=== PATIENT | female | born 1955 | race Caucasian/White ===

== ENCOUNTER 2017-02-13 16:36 | Inpatient (IN) | payer OTHER ==
[~2017-02-13 16:36] MED LIST: AMIN1TAB PO; CALCCHW6 CHEW; ESTR2TAB PO; FOLI1TAB PO; VALT1TAB26 PO
[2017-02-13 20:00] VITALS: BP 183/92; PULSE 98; RESP 18; TEMP 97.4; O2SAT 98
[2017-02-13] MEDS ORDERED: ONDANSETRON INJ 8 MG in DEXTROSE 5% IN WATER INJ 50 ML IV PRN ×2 (20:15)
[2017-02-13] MEDS ORDERED: TEMAZEPAM 15 MG CAP PO PRN (20:15)
--- NOTE | 2017-02-13 20:57 | MH ---
cc: JIE CALIX M.D. DATE OF ADMISSION: 02/13/2017 ADMITTING DIAGNOSIS: 1. Refractory ITP 2. Severe thrombocytopenia. 3. Increased bruising. 4. Herpes zoster eruption. HISTORY OF PRESENT ILLNESS Mrs. Mac is a 60-year-old woman with chronic refractory immune thrombocytopenic purpura. She is refractory to multiple therapies. She recently received rituximab. She had partial response with seemingly increase in platelet count around 30,000 range. She still required Nplate, which she takes weekly. There has been no interruption in her treatment with Nplate. Her dose has been optimized to 10 mcg/kg. Despite this however her platelet count was trending down. Two weeks ago it was 22,000 and at the beginning of the week it was 24,000. Over the last several days she has had increasing bruising. Her lip is bleeding. She reports seeing bright red blood in her stools. She denies any melena. She has no hemoptysis. She developed herpetic eruption on the day of the consultation. She was seen in clinic for her Nplate dose. In light of the above findings, her low platelet count from side reference lab in addition to the increase in bleeding and increased bruising, she is admitted to the hospital for IVIG rescue for ITP exacerbation. On review of systems she complains of being achy. She feels that this has probably been the prodrome from her herpes zoster eruption. She received the vaccine several months ago. Despite this however she has a zoster eruption that is beginning in her left upper lip. She denies feeling dizzy or weak. She denies any headaches. She has noted bleeding described above. The rest of her review of systems is negative. PAST MEDICAL HISTORY: 1. History of asthma. 2. Irritable bowel. 3. Chronic refractory ITP. 4. Herpes zoster. 5. Migraine headaches. PAST SURGICAL HISTORY: 1. Hysterectomy. 2. Tonsillectomy. 3. Splenectomy. 4. Colonoscopy. ALLERGIES: NO KNOWN DRUG ALLERGIES. FAMILY HISTORY: Significant for diabetes. SOCIAL HISTORY: She denies any tobacco, alcohol or illicit drug use. CURRENT MEDICATIONS: 1. Albuterol. 2. Nplate. 3. Estradiol. PHYSICAL EXAMINATION: VITAL SIGNS: Temperature 97.4, heart rate 98, respiratory rate 18, blood pressure 183/92, saturation 98%. GENERAL: Ms. Mac is a well-developed, well-nourished mildly heavy-set woman in no acute distress. HEAD, EYES, EARS, NOSE, THROAT: Her pupils are reactive to light and accommodation. Oropharynx with mild wet purpura. There is a crusted lesion which is intermittently bleeding over the left upper lip. There is a wet purpura in the lower lip. There are small blisters along the left nasolabial fold. LUNGS: Clear to auscultation. No wheezing. CARDIOVASCULAR: Exam reveals mild tachycardia. ABDOMEN: Abdomen is a benign. EXTREMITIES: Lower extremities with evidence of bruising. No overt petechia. There is a bruise in the inner right thigh soft. LABORATORY DATA: Reference labs from February 11: platelet count of 24,000. ASSESSMENT AND PLAN: Ms. Mac is a well-known 61-year-old woman with chronic refractory ITP. She is admitted for ITP exacerbation. CBC, CMP will be obtained. I plan to use IVIG as rescue. IV fluid hydration is initiated. She is noted to have an increase in blood pressure. She does not have a history of hypertension. She was given a dose of lorazepam and her blood pressure will be repeated. Hydration is initiated in case this is volume depletion. We will monitor for any overt bleeding. IVIG at a dose of 400 milligrams /kilogram on a 5-day dosing schedule is scheduled. She typically responds with one dose. We will assess her response in the morning. Repeat CBC in the morning. More importantly, treatment for her shingles / zoster eruption will be initiated. Valacyclovir 1000 mg p.o. q.8 h is initiated. A proton pump inhibitor is offered. Her questions were answered to her satisfaction. Jie Calix MD RAD/JCC /8:38 PM /8:52 PM
[2017-02-13] MEDS ORDERED: diphenhydrAMINE HCL 25 MG CAP PO SCH (21:00)
[2017-02-13] MEDS ORDERED: SODIUM CHLORID 0.9% 500 ML INJ 500 ML IV SCH (21:00)
[2017-02-13] MEDS: ACETAMINOPHEN 325 MG TAB PO SCH (21:54)
[2017-02-13] MEDS: SODIUM CHLOR 0.9% 1000 ML INJ 1,000 ML IV SCH (21:56)
[2017-02-13] MEDS: LORazepam 0.5 MG TAB PO PRN (21:56)
[2017-02-13] MEDS ORDERED: IMMUNE GLOBULIN INJ 40 GM in SYRINGE/BAG 1 EA IV SCH (22:00)
[2017-02-13 22:50] LABS: AUTOMATED NEUTROPHIL # 5.3 TH/MM3 (1.8-7.7); BASOPHIL # 0.1 TH/MM3 (0-0.2); BASOPHIL % 1.3 % (0.0-2.0); EOSINOPHIL # 0.3 TH/MM3 (0-0.4); EOSINOPHIL % 3.6 % (0.0-4.0); HEMATOCRIT 38.1 % (35.0-46.0); LYMPH % 17.7 % (9.0-44.0); LYMPHOCYTE # 1.4 TH/MM3 (1.0-4.8); MEAN CELL VOLUME 84.2 FL (80.0-100.0); MEAN CORPUSCULAR HEMOGLOBIN 27.6 PG (27.0-34.0); MEAN CORPUSCULAR HGB CONC 32.8 % (32.0-36.0); MONO % 10.9 % (0.0-8.0); NEUT % 66.5 % (16.0-70.0); RED BLOOD COUNT 4.52 MIL/MM3 (4.00-5.30); RED CELL DISTRIBUTION WIDTH 15.6 % (11.6-17.2); WHITE BLOOD COUNT 7.9 TH/MM3 (4.0-11.0)
[2017-02-13 23:03] LABS: HEMO FLAGS AUTO DIFF; PLATELET COUNT 11 TH/MM3 (150-450)
[2017-02-13 23:05] LABS: ANION GAP 7 MEQ/L (5-15); BICARBONATE 27.2 MEQ/L (21.0-32.0); BLOOD UREA NITROGEN 14 MG/DL (7-18); CHLORIDE 109 MEQ/L (98-107); POTASSIUM 3.6 MEQ/L (3.5-5.1); SODIUM (NA) 143 MEQ/L (136-145)
[2017-02-13 23:34] LABS: CORRECTED NUCLEATED RBC 3 /100 WBC (0-0); EOSINOPHILS 1 % (0-4); NEUTROPHIL # MANUAL DIFF 5.8 TH/MM3 (1.8-7.7); PLATELET ESTIMATE SMEAR LOW (NORMAL); PLATELET MORPHOLOGY ENLARGED (NORMAL); POLYS (SEG NEUTROPHILS) 73 % (16-70); SCAN/DIFF FINAL DIFF MANUAL; WBC DIFF SAMPLE 100
[2017-02-13 23:38] LABS: ALKALINE PHOSPHATASE 93 U/L (45-117); ALT (GPT) 25 U/L (10-53); AST (GOT) 18 U/L (15-37); GLOMERULAR FILTRATION RATE 81 ML/MIN (>89); IMMUNOGLOBULIN A 99 MG/DL (85-468); IMMUNOGLOBULIN G 775 MG/DL (650-1610); IMMUNOGLOBULIN M 19 MG/DL (45-276); TOTAL BILIRUBIN ADULT 0.2 MG/DL (0.2-1.0)
[2017-02-13 23:41] LABS: ACANTHOCYTES OCC (NORMAL); HOWELL-JOLLY BODIES PRESENT (NONE SEEN); OVALOCYTES 1+ (NORMAL)
[2017-02-13] MEDS: valACYclovir HCL 500 MG TAB PO SCH (23:47)
[2017-02-13] MEDS: PANTOPRAZOLE SOD 20 MG DELAYED RELEASE TAB PO SCH (23:47)
[2017-02-13 23:50] VITALS: BP 123/77; PULSE 77; RESP 16; TEMP 96.6; O2SAT 98
[2017-02-14] VITALS (13 sets, daily range): BP systolic 94–151; BP diastolic 53–86; PULSE 65–81; RESP 14–18; TEMP 95.8–98.3; O2SAT 94–99
[2017-02-14] MEDS: valACYclovir HCL 500 MG TAB PO SCH ×2 (06:01→13:57)
[2017-02-14] MEDS: ACETAMINOPHEN 325 MG TAB PO SCH (06:03)
[2017-02-14] MEDS: SODIUM CHLOR 0.9% 1000 ML INJ 1,000 ML IV SCH ×2 (06:05→13:57)
[2017-02-14 07:34] LABS: HEMATOCRIT 34.9 % (35.0-46.0); MEAN CELL VOLUME 83.9 FL (80.0-100.0); MEAN CORPUSCULAR HEMOGLOBIN 27.8 PG (27.0-34.0); MEAN CORPUSCULAR HGB CONC 33.1 % (32.0-36.0); PLATELET COUNT 20 TH/MM3 (150-450); RED BLOOD COUNT 4.16 MIL/MM3 (4.00-5.30); RED CELL DISTRIBUTION WIDTH 15.7 % (11.6-17.2); WHITE BLOOD COUNT 6.1 TH/MM3 (4.0-11.0)
[2017-02-14 07:39] LABS: REVIEW FLAG FINAL
[2017-02-14] MEDS ORDERED: SODIUM CHLOR 0.9% 250 ML INJ 250 ML IV ONE (09:30)
[2017-02-14] MEDS ORDERED: ACETAMINOPHEN 325 MG TAB PO PRN (09:30)
[2017-02-14] MEDS ORDERED: diphenhydrAMINE HCL 25 MG CAP PO PRN (09:30)
[2017-02-14] MEDS ORDERED: VALT500T PO (09:46)
--- NOTE | 2017-02-14 09:52 | PD.ONC.PN ---
Subjective Subjective Remarks Afebrile overnight Pt c/o occasional headache; relieved by tylenol Objective Data Date Time Temp Pulse Resp B/P Pulse Ox O2 Delivery O2 Flow Rate FiO2 02/14/17 08:00 97.3 71 14 119/77 97 02/14/17 04:30 95.8 65 15 94/55 96 02/14/17 03:30 96.9 75 16 97/53 96 02/14/17 02:24 97.2 70 16 99/68 99 02/14/17 01:30 97.1 75 16 102/76 98 02/14/17 00:35 73 16 97/62 02/14/17 00:20 97.1 76 16 104/66 94 02/14/17 00:05 97.2 74 16 114/72 98 02/13/17 23:50 96.6 77 16 123/77 98 02/13/17 20:00 97.4 98 18 183/92 98 02/14/17 02/14/17 02/14/17 07:00 15:00 23:00 Intake Total 500 ml Balance 500 ml Result Diagram: 02/14/17 0709 02/13/17 2218 Laboratory Results Laboratory Tests Test 02/13/17 02/14/17 22:18 07:09 White Blood Count 7.9 TH/MM3 6.1 TH/MM3 Red Blood Count 4.52 MIL/MM3 4.16 MIL/MM3 Hemoglobin 12.5 GM/DL 11.5 GM/DL Hematocrit 38.1 % 34.9 % Mean Corpuscular Volume 84.2 FL 83.9 FL Mean Corpuscular Hemoglobin 27.6 PG 27.8 PG Mean Corpuscular Hemoglobin 32.8 % 33.1 % Concent Red Cell Distribution Width 15.6 % 15.7 % Platelet Count 11 TH/MM3 20 TH/MM3 Mean Platelet Volume 10.5 FL 11.1 FL Neutrophils (%) (Auto) 66.5 % Lymphocytes (%) (Auto) 17.7 % Monocytes (%) (Auto) 10.9 % Eosinophils (%) (Auto) 3.6 % Basophils (%) (Auto) 1.3 % Neutrophils # (Auto) 5.3 TH/MM3 Lymphocytes # (Auto) 1.4 TH/MM3 Monocytes # (Auto) 0.9 TH/MM3 Eosinophils # (Auto) 0.3 TH/MM3 Basophils # (Auto) 0.1 TH/MM3 CBC Comment AUTO DIFF Differential Total Cells 100 Counted Neutrophils % (Manual) 73 % Lymphocytes % 20 % Monocytes % 6 % Eosinophils % 1 % Neutrophils # (Manual) 5.8 TH/MM3 Nucleated Red Blood Cells 3 /100 WBC Differential Comment FINAL DIFF MANUAL Platelet Estimate LOW Platelet Morphology Comment ENLARGED Ovalocytes 1+ Mckeon-[place] Bodies PRESENT Acanthocytes OCC Sodium Level 143 MEQ/L Potassium Level 3.6 MEQ/L Chloride Level 109 MEQ/L Carbon Dioxide Level 27.2 MEQ/L Anion Gap 7 MEQ/L Blood Urea Nitrogen 14 MG/DL Creatinine 0.73 MG/DL Estimat Glomerular Filtration 81 ML/MIN Rate Random Glucose 90 MG/DL Calcium Level 8.4 MG/DL Total Bilirubin 0.2 MG/DL Aspartate Amino Transf 18 U/L (AST/SGOT) Alanine Aminotransferase 25 U/L (ALT/SGPT) Alkaline Phosphatase 93 U/L Total Protein 6.3 GM/DL Albumin 3.6 GM/DL Immunoglobulin G Total 775 MG/DL Immunoglobulin A 99 MG/DL Immunoglobulin M 19 MG/DL Administered Medications Medications (Trade) Dose Ordered Sig/Marco A Route PRN Reason Start Time Stop Time Status Last Admin Dose Admin Lorazepam 0.5 mg 0.5 mg DAILY PRN PO anxiety or before procedure 02/13/17 20:15 02/13/17 21:56 Sodium Chloride (NS 1000 ml Inj) 1,000 ml @ 125 mls/hr Q8H IV 02/13/17 20:15 02/14/17 06:05 Valacyclovir HCl (Valtrex) 1,000 mg Q8HR PO 02/13/17 22:00 02/14/17 06:01 Pantoprazole Sodium 20 mg 20 mg DAILY PO 02/13/17 22:00 02/13/17 23:47 Sodium Chloride (NS 500 ml Inj) 500 ml @ 500 mls/hr Q24H IV 02/13/17 21:00 02/17/17 21:59 02/13/17 21:00 Acetaminophen (Tylenol) 650 mg Q24H PO 02/13/17 21:00 02/18/17 20:59 02/14/17 06:03 Diphenhydramine HCl 25 mg 25 mg Q24H PO 02/13/17 21:00 02/18/17 20:59 7/14/17 21:54 Immune Globulin/ Syringe / Bag (Privigen Inj/ Syringe/Bag) 400 ml @ 0 mls/hr Q24H IV 02/13/17 22:00 02/17/17 22:01 02/13/17 23:48 Objective Remarks GENERAL: Middle-aged female sitting up in bed in no distress SKIN: Warm and dry. HEAD: Normocephalic. Scab to left lower lip EYES: No injection or drainage. NECK: Supple, trachea midline. CARDIOVASCULAR: + S1/S2. No murmur. RESPIRATORY: Breath sounds equal bilaterally. No accessory muscle use. GASTROINTESTINAL: Abdomen soft, non-tender, nondistended. EXTREMITIES: Few ecchymoses to bilateral upper and lower extremities MUSCULOSKELETAL: Adequate muscle tone. NEUROLOGICAL: No obvious focal deficit. Awake, alert, and oriented x3. Assessment/Plan Problem List: (1) ITP (idiopathic thrombocytopenic purpura) Status: Chronic Assessment 61-year-old female with refractory ITP to multiple medications admitted for IVIG infusion Plan 1. CT Brain to r/o hemorrhage with severe thrombocytopenia and headache. 2. OK for discharge after platelet transfusion and CT brain. 2. Weekly CBC 3. Follow-up with me in clinic on February 24. Attending Statement The exam, history, and the medical decision-making described in the above note were completed with the assistance of the mid-level provider. I reviewed and agree with the findings presented. I attest that I had a [id number] encounter with the patient on the same day, and personally performed and documented my assessment and findings in the medical record. Ct brain removed --acute intracranial process plt transfusion ok to d/c [facility] Feb 14, 2017 09:52 Igor Bailon MD Feb 15, 2017 00:55
--- NOTE | 2017-02-14 09:57 | HHI.DCPOC ---
Discharge Care Plan Diagnosis: (1) ITP (idiopathic thrombocytopenic purpura) Goals to Promote Your Health * To prevent worsening of your condition and complications * To maintain your health at the optimal level Directions to Meet Your Goals Take your medications as prescribed Follow your dietary instruction Follow activity as directed Keep your appointments as scheduled Take your immunizations and boosters as scheduled If your symptoms worsen call your PCP, if no PCP go to Urgent Care Center or Emergency Room Smoking is Dangerous to Your Health. Avoid second hand smoke Call the 24-hour hour crisis hotline for domestic abuse at [facility] Feb 14, 2017 09:56 Igor Bailon MD Feb 15, 2017 00:55
[2017-02-14] MEDS: PANTOPRAZOLE SOD 20 MG DELAYED RELEASE TAB PO SCH (09:58)
[2017-02-14] MEDS: LORazepam 0.5 MG TAB PO PRN (13:56)
--- NOTE | 2017-02-14 16:12 | RADRPT ---
EXAM DATE/TIME: 02/14/2017 15:54 [facility] COMPARISON: No previous studies available for comparison. INDICATIONS : Headache for 3 days RADIATION DOSE: 47.74 CTDIvol (mGy) MEDICAL HISTORY : None SURGICAL HISTORY : None. ENCOUNTER: Initial ACUITY: 3 days PAIN SCALE: 5/10 LOCATION: cranial TECHNIQUE: Multiple contiguous axial images were obtained of the head. Using automated exposure control and adj ustment of the mA and/or kV according to patient size, radiation dose was kept as low as reasonably a chievable to obtain optimal diagnostic quality images. DICOM format image data is available electro nically for review and comparison. FINDINGS: There is no evidence for intracranial hemorrhage, mass effect, mass lesions, edema, or extra-axial fl uid collections. The visualized bony structures appear intact. The ventricles are normal size for t he patient's age. There are no signs of acute infarction for technique. CONCLUSION: Unremarkable study. Beto Mccracken MD on February 14, 2017 at 16:08 Board Certified Radiologist. This report was verified electronically.
== END 2017-02-14 18:30 | disposition home or self-care (01) | DRG 813 ==
LOC: HOCB 19:50
PROVIDERS: ADMIT Internal Medicine Hematology & Oncology; ATTEND Internal Medicine Hematology & Oncology
PROC: 30233R1 Transfusion of Nonautologous Platelets into Peripheral Vein, Percutaneous Approach (ICD-10-PCS; principal; 2017-02-14)
DX: D69.3 Immune thrombocytopenic purpura (principal); B02.9 Zoster without complications; J45.909 Unspecified asthma, uncomplicated; K58.9 Irritable bowel syndrome, unspecified; G43.909 Migraine, unspecified, not intractable, without status migrainosus
CPT/HCPCS: 36430; 70450; 80053; 82784; 85007; 85027; 86965; J1459; J7030; J7040; P9035

== ENCOUNTER 2017-09-25 13:58 | Emergency (ER) | payer OTHER ==
[~2017-09-25] VITALS: Ht 165.1 cm; Wt 85.0 kg
[~2017-09-25 13:58] MED LIST changes: -AMIN1TAB PO; +VALT500T PO
[2017-09-25 14:22] VITALS: BP 150/91; PULSE 78; RESP 18; TEMP 98.6; O2SAT 99
[2017-09-25] MEDS ORDERED: METH2.5T PO (15:11)
[2017-09-25] MEDS ORDERED: ESTR2TAB PO (15:11)
[2017-09-25] MEDS ORDERED: FOLI400T PO (15:11)
[2017-09-25] MEDS ORDERED: FISHCAP4 PO (15:11)
[2017-09-25 15:16] LABS: BICARBONATE 27.9 MEQ/L (21.0-32.0); CALCIUM 9.1 MG/DL (8.5-10.1)
[2017-09-25 15:17] LABS: PROTHROMBIN TIME - PATIENT 10.5 SEC (9.8-11.6)
[2017-09-25 15:20] LABS: CREATININE 0.71 MG/DL (0.50-1.00)
[2017-09-25 15:21] LABS: AUTOMATED NEUTROPHIL # 8.7 TH/MM3 (1.8-7.7); BASOPHIL # 0.1 TH/MM3 (0-0.2); BASOPHIL % 0.7 % (0.0-2.0); EOSINOPHIL # 0.3 TH/MM3 (0-0.4); EOSINOPHIL % 2.5 % (0.0-4.0); HEMATOCRIT 38.2 % (35.0-46.0); HEMOGLOBIN 12.5 GM/DL (11.6-15.3); LYMPH % 20.7 % (9.0-44.0); LYMPHOCYTE # 2.6 TH/MM3 (1.0-4.8); MEAN CELL VOLUME 86.3 FL (80.0-100.0); MEAN CORPUSCULAR HEMOGLOBIN 28.2 PG (27.0-34.0); MEAN CORPUSCULAR HGB CONC 32.7 % (32.0-36.0); MEAN PLATELET VOLUME 6.7 FL (7.0-11.0); MONOCYTE # 0.9 TH/MM3 (0-0.9); NEUT % 69.1 % (16.0-70.0); RED BLOOD COUNT 4.43 MIL/MM3 (4.00-5.30); RED CELL DISTRIBUTION WIDTH 16.6 % (11.6-17.2); WHITE BLOOD COUNT 12.6 TH/MM3 (4.0-11.0)
[2017-09-25] MEDS ORDERED: IOHEXOL 350 MG/ML 10 ML VIAL (for RAD DIAG) IVCONTRAST ONE (16:01)
--- NOTE | 2017-09-25 16:04 | RADRPT ---
EXAM DATE/TIME: 09/25/2017 15:22 [facility] COMPARISON: No previous studies available for comparison. INDICATIONS : Right leg swelling. MEDICAL HISTORY : Asthma. Arthritis. Anxiety. Thrombocytopenia. Shingles. SURGICAL HISTORY : Hysterectomy. Splenectomy. ENCOUNTER: Initial ACUITY: 1 week PAIN SCORE: 3/10 LOCATION: Right leg. TECHNIQUE: Venous ultrasound of the leg was performed from the inguinal ligament to the proximal calf. Real-alpa e, color Doppler and spectral tracing, compression and augmentation techniques were used. FINDINGS: There is normal compressibility of the deep venous system from the inguinal region to the proximal ca lf. No echogenic clot is seen in the lumen of the common femoral, femoral, popliteal, and posterior tibial veins. There is a normal response of the venous system to proximal and distal augmentation an d respiration. CONCLUSION: 1. No DVT identified. Davian Evans MD on September 25, 2017 at 16:02 Board Certified Radiologist. This report was verified electronically.
--- NOTE | 2017-09-25 17:01 | PD ---
HPI . Pain and swelling of the right leg Chief Complaint: Abnormal Results Time Seen by Provider: 14:42 Travel History International Travel<30 days: No Contact w/Intl Traveler<30days: No Traveled to known affect area: No History of Present Illness HPI Patient presents with the chief complaint of pain and swelling of her right lower extremity. She states she has noticed some swelling in her foot for a while now but that she has just developed pain and swelling behind the knee and into the calf. Pain is exacerbated by movement and also by standing. There has been no injury. She denies chest pain or shortness of breath. Pertinent medical history is thrombocytopenia. She states that she has had thrombocytopenia for a while and has been treated for presumed ITP. 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 She is now on methotrexate. She has been on the methotrexate since about July. She was seen today regarding the leg pain. Her oncologist sent her here for ultrasound to rule out DVT and CTA with runoff to rule out arterial abnormality. Patient rates her pain at 9/10 but states that she just needs the Tylenol. PFSH Past Medical History Arthritis: Yes (HANDS) Asthma: Yes Autoimmune Disease: No Blood Disorders: Yes (ITP) Anxiety: Yes Depression: No Heart Rhythm Problems: No Cancer: No Cardiovascular Problems: No High Cholesterol: No Chemotherapy: Yes Chest Pain: No Congestive Heart Failure: No COPD: No Cerebrovascular Accident: No Diabetes: No Endocrine: No GERD: No Glaucoma: No Genitourinary: No Hepatitis: No Hiatal Hernia: No Hypertension: No Immune Disorder: No Kidney Stones: No Musculoskeletal: No Neurologic: No Psychiatric: No Reproductive: No Respiratory: Yes (HX. ASTHMA) Migraines: No Radiation Therapy: No Renal Failure: No Seizures: No Sickle Cell Disease: No Sleep Apnea: No Thyroid Disease: No Ulcer: No Past Surgical History Abdominal Surgery: Yes (SPLEENECTOMY) AICD: No Arteriovenous Shunt: No Cardiac Surgery: No Ear Surgery: No Endocrine Surgery: No Eye Surgery: No Genitourinary Surgery: No Gynecologic Surgery: Yes (ABDOMINAL HYSTERECTOMY) Insulin Pump: No Joint Replacement: No Oral Surgery: No Pacemaker: No Thoracic Surgery: No Other Surgery: Yes Social History Alcohol Use: Yes (SOCIALLY) Tobacco Use: No Substance Use: No Allergies-Medications (Allergen,Severity, Reaction): Coded Allergies: No Known Allergies (Unverified Adverse Reaction, Unknown, 09/25/17) Reported Meds & Prescriptions Reported Meds & Active Scripts Active Reported Fish Oil + D3 (Fish Oil-Cholecalciferol) 1,200-1,000 Mg-Unit Cap 1 Cap PO DAILY Folic Acid 0.4 Mg Tab 2 Mcg PO DAILY Estradiol 2 Mg Tab 2 Mg PO DAILY Methotrexate 2.5 Mg Tab 17 Mg PO Q7D Review of Systems Except as stated in HPI: all other systems reviewed are Neg General / Constitutional: No: Fever, Chills Cardiovascular: No: Chest Pain or Discomfort Respiratory: No: Shortness of Breath Musculoskeletal: Positive: Myalgias Hematologic/Lymphatic: Positive: Easy Bruising Physical Exam Narrative GENERAL: Awake and alert and in no acute distress. SKIN: Warm and dry. Scattered bruising in various stages of healing. HEAD: Normocephalic/atraumatic. EYES: Pupils are equal. Extraocular movements are intact. NECK: Normal range of motion. RESPIRATORY: Nonlabored respirations. MUSCULOSKELETAL: Mild tenderness and swelling to the right lower extremity from the knee down NEUROLOGICAL: Nonfocal. PSYCHIATRIC: Appropriate mood and affect. Data Data Last Documented VS Vital Signs Date Time Temp Pulse Resp B/P (MAP) Pulse Ox O2 Delivery O2 Flow Rate FiO2 09/25/17 15:01 Room Air 09/25/17 14:22 98.6 78 18 150/91 (110) 99 Orders Orders Us Leg Venous Doppler (09/25/17 14:42) Cta Runoff W Iv Contrast W 3d (09/25/17 ) Act Partial Throm Time (Ptt) (09/25/17 14:42) Prothrombin Time / Inr (Pt) (09/25/17 14:42) Basic Metabolic Panel (Bmp) (09/25/17 14:42) Complete Blood Count With Diff (09/25/17 14:42) ^ Saline Lock (09/25/17 14:42) Iohexol 350 Inj (Omnipaque 350 Inj) (09/25/17 16:01) Acetaminophen (Tylenol) (09/25/17 17:15) Dexamethasone (Decadron) (09/25/17 18:15) Labs Laboratory Tests Test 09/25/17 14:58 09/25/17 16:12 Prothrombin Time 10.5 SEC Prothromb Time International Ratio 1.0 RATIO Activated Partial Thromboplast Time 24.6 SEC Blood Urea Nitrogen 15 MG/DL Creatinine 0.71 MG/DL Random Glucose 96 MG/DL Calcium Level 9.1 MG/DL Sodium Level 141 MEQ/L Potassium Level 4.4 MEQ/L Chloride Level 108 MEQ/L Carbon Dioxide Level 27.9 MEQ/L Anion Gap 5 MEQ/L Estimat Glomerular Filtration Rate 83 ML/MIN White Blood Count 12.6 TH/MM3 Red Blood Count 4.43 MIL/MM3 Hemoglobin 12.5 GM/DL Hematocrit 38.2 % Mean Corpuscular Volume 86.3 FL Mean Corpuscular Hemoglobin 28.2 PG Mean Corpuscular Hemoglobin Concent 32.7 % Red Cell Distribution Width 16.6 % Platelet Count 5 TH/MM3 Mean Platelet Volume 6.7 FL Neutrophils (%) (Auto) 69.1 % Lymphocytes (%) (Auto) 20.7 % Monocytes (%) (Auto) 7.0 % Eosinophils (%) (Auto) 2.5 % Basophils (%) (Auto) 0.7 % Neutrophils # (Auto) 8.7 TH/MM3 Lymphocytes # (Auto) 2.6 TH/MM3 Monocytes # (Auto) 0.9 TH/MM3 Eosinophils # (Auto) 0.3 TH/MM3 Basophils # (Auto) 0.1 TH/MM3 CBC Comment AUTO DIFF Differential Total Cells Counted 100 Neutrophils % (Manual) 56 % Band Neutrophils % 2 % Lymphocytes % 26 % Monocytes % 9 % Eosinophils % 6 % Basophils % 1 % Neutrophils # (Manual) 7.3 TH/MM3 Nucleated Red Blood Cells 3 /100 WBC Differential Comment FINAL DIFF MANUAL Atypical Lymphocytes % Platelet Estimate RARE Platelet Morphology Comment NORMAL Ovalocytes 1+ MDM Medical Decision Making Medical Screen Exam Complete: Yes Emergency Medical Condition: Yes Differential Diagnosis Differential diagnosis of leg pain includes but is not limited to lumbar radiculopathy, arthritis, myalgias, DVT, ruptured Funes's cyst. Narrative Course This patient presents with swelling and pain of her right leg. She has thrombocytopenia. BMP Diagram 09/25/17 14:58 Calcium Level 9.1 CBC Diagram 09/25/17 16:12 I will consult oncology regarding the thrombocytopenia. Last Impressions Lower Extremity Ultrasound 09/25/17 1442 Signed Impressions: Service Date/Time: Monday, September 25, 2017 15:22 - CONCLUSION: 1. No DVT identified. Davian Evans MD Aorta w/Runoff CTA 09/25/17 0000 Signed Impressions: Service Date/Time: Monday, September 25, 2017 15:53 - CONCLUSION: Nearly normal CTA runoff exam No acute CT findings in the abdomen or pelvis. Dennys Beltre MD I have spoken with Dr. Hui who is very familiar with this patient. She recommends either IVIG or Decadron. I have discussed this with the patient. The patient states that her oncologist at [facility] has told her not to use IVIG again in the future had a paronychia but to rather use Decadron. She has a protocol for this. She states that she has not yet filled the prescription because she has not needed it but that she has the prescription at home. I will go ahead and give her a dose of 10 mg now. She will get the prescription filled and take another dose prior to bedtime. Her total daily dose is supposed to be 40 mg a day. She has an appointment for recheck of her platelet count next week. She states that they check it every week. Diagnosis Primary Impression: Right leg pain Additional Impression: Thrombocytopenia Patient Instructions: General Instructions, Thrombocytopenia (DC) Additional Instructions: Take your Decadron protocol as directed by your oncologist. Disposition: 01 DISCHARGE HOME Condition: Stable Sabiha Sanchez MD Sep 25, 2017 17:01
[2017-09-25 17:09] LABS: PLATELET COUNT 5 TH/MM3 (150-450)
[2017-09-25] MEDS ORDERED: ACETAMINOPHEN 325 MG TAB PO ONE (17:15)
[2017-09-25 17:16] LABS: BANDS 2 % (0-6); BASOPHILS 1 % (0-2); CORRECTED NUCLEATED RBC 3 /100 WBC (0-0); LYMPHOCYTES 26 % (9-44); MONOCYTES 9 % (0-8); NEUTROPHIL # MANUAL DIFF 7.3 TH/MM3 (1.8-7.7); NUCLEATED RED BLOOD CELL 3 (0-0); OVALOCYTES 1+ (NORMAL); POLYS (SEG NEUTROPHILS) 56 % (16-70)
--- NOTE | 2017-09-25 17:22 | RADRPT ---
EXAM DATE/TIME: 09/25/2017 15:53 [facility] COMPARISON: No previous studies available for comparison. INDICATIONS : Righ leg pain and swelling. IV CONTRAST: 95 cc Omnipaque 350 (iohexol) IV RADIATION DOSE: 11.92 CTDIvol (mGy) MEDICAL HISTORY : Asthma SURGICAL HISTORY : Hysterectomy. Splenectomy. ENCOUNTER: Initial ACUITY: 4 - 6 days PAIN SCALE: 5/10 LOCATION: Right lower extremity. TECHNIQUE: Volumetric scanning was performed using a multi-row detector CT scanner. The data was post processed with a variety of visualization algorithms including full volume maximum intensity projection, multi -planar sliding thin slab reformation, curved planar reformation, and surface rendering techniques. Using automated exposure control and adjustment of the mA and/or kV according to patient size, radiat ion dose was kept as low as reasonably achievable to obtain optimal diagnostic quality images. DICO M format image data is available electronically for review and comparison. FINDINGS: The abdominal aorta and iliacs are widely patent with mild atheromatous disease and occasional intima l calcification. The aortic visceral vessels are intact. Specifically, celiac, SMA renal arteries and TETE are widely patent. In the pelvis, the internal iliacs are patent bilaterally. The common femoral arteries and profundas are patent and satisfactory in appearance bilaterally. Runoff is normal bilat erally. 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 The uterus is surgically absent. There are no acute CT findings in the abdomen or pelvis. There is no evidence of retroperitoneal adenopathy CONCLUSION: Nearly normal CTA runoff exam No acute CT findings in the abdomen or pelvis. Dennys Beltre MD on September 25, 2017 at 17:16 Board Certified Radiologist. This report was verified electronically.
[2017-09-25] MEDS ORDERED: DEXAMETHASONE 0.5 MG TAB PO ONE (18:15)
[2017-09-25] MEDS ORDERED: DEXAMETHASONE 4 MG TAB PO ONE ×2 (18:15→18:30)
[2017-09-25] MEDS: PILL SPLITTER OTHER PRN ×2 (18:27→18:32)
== END 2017-09-25 18:54 | disposition home or self-care (01) ==
LOC: PHED 13:58
DX: M79.604 Pain in right leg (principal); D69.6 Thrombocytopenia, unspecified; M19.042 Primary osteoarthritis, left hand; M19.041 Primary osteoarthritis, right hand; J45.909 Unspecified asthma, uncomplicated; F41.9 Anxiety disorder, unspecified
CPT/HCPCS: 75635; 80048; 85007; 85027; 85610; 85730; 93971; 99285; J8540; Q9967